=== PATIENT | female | born 1965 | race African-American/Black ===

== ENCOUNTER 2017-10-05 08:33 | Outpatient (CLI) | payer OTHER | END 2017-10-05 08:34 | disposition home or self-care (01) | LOC: BICULT 08:33 | PROVIDERS: ATTEND Internal Medicine Gastroenterology | DX: R10.12 Left upper quadrant pain (principal) | CPT/HCPCS: 76700 ==

== ENCOUNTER 2018-06-13 04:27 | Emergency (ER) | payer OTHER ==
[2018-06-13] MEDS ORDERED: diphenhydrAMINE 50 MG/ML VIAL ONE (04:42)
[2018-06-13] MEDS ORDERED: diphenhydrAMINE 50 MG CAP ONE (04:42)
== END 2018-06-13 04:54 | disposition home or self-care (01) ==
LOC: ERS 04:27
DX: L50.9 Urticaria, unspecified (principal); I10 Essential (primary) hypertension; E03.9 Hypothyroidism, unspecified; E78.00 Pure hypercholesterolemia, unspecified; Z79.899 Other long term (current) drug therapy
CPT/HCPCS: 99282; J1200

== ENCOUNTER 2019-04-30 10:29 | Outpatient (CLI) | payer OTHER ==
--- NOTE | 2019-04-30 11:05 | RAD ---
XR Thoracic Spine 3 V STANDARD History: Low [age] pain. M [age] Comparison: None. Findings: Thoracic spine is intact. No fracture. No malalignment. No subluxation. Visualized ribs are intact. Heart size appears be enlarged. Impression: No acute osseous abnormality of the thoracic spine.
--- NOTE | 2019-04-30 12:27 | RAD ---
LUMBAR SPINE 2 VIEWS: Date: 04/30/19 HISTORY: Low back pain. FINDINGS/IMPRESSION: No fracture, subluxation, or bony destruction is identified. There are minimal degenerative changes i n the lower lumbar spine. POS: OFF
== END 2019-04-30 10:30 | disposition home or self-care (01) ==
LOC: SCSRAD 10:29
PROVIDERS: ATTEND Nurse Practitioner Family
DX: M54.5 Low back pain (principal); M47.816 Spondylosis without myelopathy or radiculopathy, lumbar region
CPT/HCPCS: 72072; 72100

== ENCOUNTER 2019-10-10 08:51 | Outpatient (CLI) | payer OTHER ==
--- NOTE | 2019-10-10 10:35 | RAD ---
PA AND LATERAL CHEST: Date: 10/10/2019 HISTORY: Left-sided pain. FINDINGS: Heart size is borderline. Mediastinal structures are unremarkable. Lungs are clear of any infiltrates . No significant bony findings. IMPRESSION: Borderline heart size. POS: TPC
== END 2019-10-10 08:52 | disposition home or self-care (01) ==
LOC: SCSRAD 08:51
PROVIDERS: ATTEND Family Medicine
DX: M54.6 Pain in thoracic spine (principal)
CPT/HCPCS: 71046; 87086

== ENCOUNTER 2021-03-04 07:09 | Day surgery (SDC) | payer BC ==
[2021-03-03 13:40] VITALS: BMI 35.5
[2021-03-04] MEDS ORDERED: cefOXitin Sodium/Dextrose 2 GM/50 ML BAG ONE (08:15)
[2021-03-04] MEDS ORDERED: Bupivacaine 0.25% HCL 30 ML VIAL ONE (09:15)
[2021-03-04] MEDS ORDERED: EPINEPHrine 1 MG/ML AMP ONE (09:15)
[2021-03-04] MEDS ORDERED: Fentanyl 100 MCG/2 ML VIAL ONE ×2 (09:18→10:56)
[2021-03-04] MEDS ORDERED: PROPOFOL 200 MG/20 ML VIAL ONE (09:42)
[2021-03-04] MEDS ORDERED: Rocuronium Bromide 10 MG/ML (10ML VIAL) ONE (09:42)
[2021-03-04] MEDS ORDERED: Lidocaine 1% PF 5 ML VIAL ONE (09:42)
[2021-03-04] MEDS ORDERED: Glycopyrrolate 0.2 MG/ML 5 ML SYRINGE ONE (09:42)
[2021-03-04] MEDS ORDERED: SUGAMMADEX SODIUM 200 MG/2 ML VIAL ONE (10:06)
[2021-03-04] MEDS ORDERED: Ondansetron PF 4 MG/2 ML Vial ONE (12:36)
== END 2021-03-04 13:35 | disposition home or self-care (01) ==
LOC: SDC 07:09
PROVIDERS: ATTEND Surgery
PROC: 0FT44ZZ Resection of Gallbladder, Percutaneous Endoscopic Approach (ICD-10-PCS; principal; 2021-03-04)
DX: K80.10 Calculus of gallbladder with chronic cholecystitis without obstruction (principal); E03.9 Hypothyroidism, unspecified; I10 Essential (primary) hypertension; E78.5 Hyperlipidemia, unspecified; Z79.82 Long term (current) use of aspirin; Z79.899 Other long term (current) drug therapy; Z88.1 Allergy status to other antibiotic agents; Z88.8 Allergy status to other drugs, medicaments and biological substances
CPT/HCPCS: 88304; J0171; J0694; J2405; J2704; J3010; S0020

== ENCOUNTER 2022-01-31 08:12 | Outpatient (CLI) | payer BC ==
[~2022-01-31 08:12] MED LIST: Iopamidol 370 76% 100 ML VIAL ONE
== END 2022-01-31 08:13 | disposition home or self-care (01) ==
LOC: NM 08:12
PROVIDERS: ATTEND Urology
DX: N28.89 Other specified disorders of kidney and ureter (principal)
CPT/HCPCS: 71260; 78306; A9503; Q9967